=== PATIENT | male | born 1990 | race Two or more races ===

== ENCOUNTER 2016-10-01 13:01 | Outpatient (CLI) ==
[2016-10-01 15:49] LABS: BASOPHILS # (AUTO) 0.1 K/uL (0-0.2); BASOPHILS % (AUTO) 0.9 % (0.0-3.0); EOSINOPHILS # (AUTO) 0.3 K/ul (0.0-0.7); EOSINOPHILS % (AUTO) 4.4 % (0.0-7.0); HEMATOCRIT 38.1 % (42.0-52.0); HEMOGLOBIN 12.8 g/dl (14.0-18.0); IMMATURE GRANULOCYTE % (AUTO) 0.3 % (0.0-5.0); LYMPHOCYTES # (AUTO) 2.8 K/uL (0.60-3.4); LYMPHOCYTES % (AUTO) 40.5 (10.0-50.0); MEAN CORPUSCULAR HEMOGLOBIN 30.9 pg (27.0-31.0); MEAN CORPUSCULAR HGB CONC 33.6 (31.8-35.4); MONOCYTES # (AUTO) 0.5 K/uL (0.4-2.0); MONOCYTES % (AUTO) 6.7 (0-10); NEUTROPHILS # (AUTO) 3.3 K/ul (2.0-6.9); NEUTROPHILS % (AUTO) 47.2; PLATELET COUNT 235 10^3/uL (140-440); RED BLOOD COUNT 4.14 10^6/ul (4.70-6.10); WHITE BLOOD COUNT 6.87 K/ul (4.2-10.2)
[2016-10-01 16:20] LABS: ALBUMIN/GLOBULIN RATIO 1.6; ANION GAP 13.5; BILIRUBIN,TOTAL 0.28 mg/dL (0.00-1.20); BUN/CREATININE RATIO 8.42; CALCIUM 9.5 mg/dL (8.2-10.2); CREATININE 0.95 mg/dL (0.60-1.10); POTASSIUM 4.5 mmol/L (3.5-5.1); TOTAL PROTEIN 6.5 g/dL (6.4-8.2)
[2016-10-02 17:52] LABS: IMMATURE RETIC FRACTION 10.3; RETICULOCYTE % 1.38 %
[2016-10-02 17:54] LABS: FERRITIN 108.03 ng/mL (21.81-274.66)
== END 2016-10-01 13:02 | disposition home or self-care (01) ==
LOC: LAB 13:01
PROVIDERS: ATTEND Nurse Practitioner Family
DX: Z00.00 Encounter for general adult medical examination without abnormal findings (principal); S50.11XA Contusion of right forearm, initial encounter; R53.83 Other fatigue; D64.9 Anemia, unspecified; R71.8 Other abnormality of red blood cells; R94.6 Abnormal results of thyroid function studies
CPT/HCPCS: 36415; 80053; 82306; 82607; 82728; 83540; 83550; 84443; 84466; 85025; 85045

== ENCOUNTER 2016-10-02 16:51 | Outpatient (CLI) | END 2016-10-02 16:52 | disposition home or self-care (01) | LOC: LAB 16:51 | PROVIDERS: ATTEND Nurse Practitioner Family | DX: D64.9 Anemia, unspecified (principal); R71.8 Other abnormality of red blood cells; R94.6 Abnormal results of thyroid function studies ==